=== PATIENT | male | born 1985 | race Caucasian/White ===

== ENCOUNTER 2019-05-04 02:05 | Inpatient (IN) | payer MEDICARE, OTHER ==
[2019-05-04] MEDS ORDERED: Morphine 2 MG/ML SYRINGE ONE (02:29)
[2019-05-04] MEDS ORDERED: Ondansetron PF 4 MG/2 ML Vial ONE (02:29)
[2019-05-04] MEDS ORDERED: Lorazepam 2 MG/ML VIAL ONE ×2 (04:00→07:34)
[2019-05-04] MEDS ORDERED: Fentanyl 100 MCG/2 ML VIAL ONE ×2 (05:53→09:42)
--- NOTE | 2019-05-04 08:15 | CT ---
CT OF THE ABDOMEN AND PELVIS WITH IV CONTRAST: INDICATION: Elevated lipase and concern for delirium tremens. The patient is also having upper abdominal pain. COMPARISON: None. FINDINGS: There is mild bibasilar atelectasis. There is hepatomegaly with fatty infiltration. The liver measures 24 cm in its greatest longitudinal dimension. There is mild splenomegaly measuring 13.7 cm. There is mild left gallbladder wall thickening. There is edematous change surrounding the pancreas w ith edema seen within the right aspect of the anterior pararenal space. There is edema present surro unding the hepatic flexure and proximal transverse colon which is likely reactive in nature. There i s mild wall thickening involving the proximal transverse colon and hepatic flexure which is also susp ected to be reactive in nature. There is mild free fluid in the lower pelvis. The adrenal glands and kidneys are normal appearing. The small bowel is of normal caliber. There is a healed fracture deformity involving the obturator r ings and left sacrum. There are 2 percutaneously placed pins traversing the left SI joint. No acute fracture is evident. There are healed fracture deformities involving the anterior columns of the acetabuli bilaterally. IMPRESSION: 1. Findings most consistent with acute noncomplicated pancreatitis. There is associated reactive ed raine and wall thickening involving portions of the hepatic flexure and proximal transverse colon. 2. Hepatosplenomegaly with fatty infiltration. 3. Mild gallbladder wall thickening may be reactive in nature. A component of acute cholecystitis c annot be excluded. Recommend consideration for right upper quadrant ultrasound. 4. Healed fracture deformity of the pelvis. POS:
--- NOTE | 2019-05-04 08:33 | ULT ---
RIGHT UPPER QUADRANT ULTRASOUND: INDICATION: Concern for acute cholecystitis with elevated lipase and epigastric pain. FINDINGS: There is mild edematous change seen surrounding the pancreas. The liver is enlarged with associated fatty infiltration. A small amount of ascites is seen adjacent to the right hepatic lobe. The gallbladder is distended with pericholecystic fluid and gallbladder wall thickening and a positiv e sonographic Man's sign. The common bile duct measured 3.9 mm approximately. The right kidney m easured 12.5 x 4.4 x 4.9 cm. IMPRESSION: 1. Distention of the gallbladder with gallbladder wall thickening, pericholecystic fluid, and positi ve sonographic Man's sign is suspicious for acute acalculus cholecystitis. The patient, on a rece nt CT examination, did have changes of acute pancreatitis. Correlation with the clinical exam is rec ommended. Consideration for a HIDA scan may be helpful to evaluate for cystic duct obstruction. 2. Hepatomegaly with fatty liver and a small amount of ascites. POS: BH
[2019-05-04] MEDS ORDERED: Lorazepam 2 MG/ML VIAL SLOW IVP PRN (11:14)
[2019-05-04] MEDS ORDERED: Labetalol HCl 100 MG/20 ML VIAL SLOW IVP PRN (11:14)
[2019-05-04] MEDS ORDERED: Acetaminophen 650 MG Suppository PR PRN (11:14)
[2019-05-04] MEDS ORDERED: hydrALAZINE 20 MG/ML VIAL SLOW IVP PRN (11:14)
[2019-05-04] MEDS ORDERED: Ondansetron PF 4 MG/2 ML Vial IVP PRN (11:14)
[2019-05-04] MEDS: Morphine 4 MG/ML VIAL SLOW IVP PRN ×4 (11:27→20:42)
[2019-05-04 11:36] VITALS: BMI 26.0
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
--- NOTE | 2019-05-04 12:34 | RAD ---
PA AND LATERAL CHEST: History: Chest pain FINDINGS: The heart size is normal. There is mild elevation of the right hemidiaphragm. No focal areas of conso lidation, pneumothoraces or pleural effusions are seen. There are post-operative changes and plate an d screws in the right clavicle. IMPRESSION: No radiographic evidence of acute cardiopulmonary process. POS: TPC
[2019-05-04] MEDS: Multivitamins, Adult 10 ML, Folic Acid 1 MG, Thiamine HCl 100 MG in Dextrose 5 %-0.45 %... IV SCH (14:28)
[2019-05-04] MEDS: Sodium Chloride 0.9% 1,000 ML IV SCH ×3 (14:34→20:26)
[2019-05-04] MEDS ORDERED: Iopamidol 370 76% 100 ML VIAL ONE (15:58)
[2019-05-04 18:34] LABS: Mean Corpuscular HGB CONC 33.9 g/dL (32.0-36.0); Mean Corpuscular Hemoglobin 36.3 pg (27.0-31.0); Mean Platelet Volume 6.5 fL (7.4-10.4); Platelet Count 158 thou/uL (130-400); Red Blood Cell (RBC) Count 3.04 mill/uL (4.70-6.10); White Blood Cell (WBC) Count 5.8 thou/uL (4.8-10.8)
[2019-05-04 18:35] LABS: #Lymphocytes 1.1 thou/uL (1.20-3.40); #Monocytes 0.4 thou/uL (0.11-0.59); #Neutrophils 4.2 thou/uL (1.40-6.50); %Basophils 0.8 % (0.0-1.0); %Eosinophils 0.7 % (0.0-10.0); %Lymphocytes 19.4 % (21.0-51.0); %Monocytes 6.9 % (0.0-10.0); %Neutrophils 72.2 % (42.0-75.0)
[2019-05-04 18:52] LABS: MDiff Complete? YES; Macrocytosis SLIGHT = 6-15 cells (100X) (0-5/hpf); Platelet Morphology Comment Appears Adequate; Polychromasia SLIGHT = 2-3 cells (100X) (0-2/hpf)
[2019-05-04 18:55] LABS: ALT (SGPT) 113 U/L (8-55); AST (SGOT) 204 U/L (5-34); Albumin 3.8 g/dL (3.5-5.0); Alkaline Phosphatase 166 U/L (40-150); Anion Gap 18 mmol/L (10-20); BUN (Urea Nitrogen) Less than 4 mg/dL (8.9-20.6); Bilirubin, Total 2.5 mg/dL (0.2-1.2); Calc. Creatinine Clearance 191 mL/min (70-130); Calcium 8.5 mg/dL (7.8-10.44); Carbon Dioxide 21 mmol/L (22-29); Chloride 99 mmol/L (98-107); Estimated GFR-MDRD Greater than 90; Globulin 3.9 g/dL (2.4-3.5); Glucose 134 mg/dL (70-105); Potassium 3.2 mmol/L (3.5-5.1); Protein, Total 7.7 g/dL (6.0-8.3); Sodium 135 mmol/L (136-145)
[2019-05-04] MEDS: Lorazepam 2 MG/ML VIAL SLOW IVP PRN (20:22)
[2019-05-05] MEDS: Morphine 4 MG/ML VIAL SLOW IVP PRN ×7 (00:42→21:24)
[2019-05-05] MEDS: Lorazepam 2 MG/ML VIAL SLOW IVP PRN ×5 (02:15→21:24)
[2019-05-05] MEDS: Sodium Chloride 0.9% 1,000 ML IV SCH ×3 (04:20→21:26)
[2019-05-05 05:53] LABS: #Eosinphils 0.1 thou/uL (0.0-0.7); #Monocytes 0.4 thou/uL (0.11-0.59); #Neutrophils 3.9 thou/uL (1.40-6.50); %Basophils 0.2 % (0.0-1.0); %Lymphocytes 17.7 % (21.0-51.0); %Monocytes 8.2 % (0.0-10.0); %Neutrophils 72.9 % (42.0-75.0); Hemoglobin 11.1 g/dL (14.0-18.0); Mean Corpuscular HGB CONC 34.8 g/dL (32.0-36.0); Mean Platelet Volume 6.8 fL (7.4-10.4); Platelet Count 157 thou/uL (130-400); RBC Distribution Width 12.9 % (11.5-14.5); White Blood Cell (WBC) Count 5.4 thou/uL (4.8-10.8)
[2019-05-05 06:09] LABS: Anion Gap 18 mmol/L (10-20); BUN (Urea Nitrogen) Less than 4 mg/dL (8.9-20.6); Calc. Creatinine Clearance 197 mL/min (70-130); Calcium 8.6 mg/dL (7.8-10.44); Carbon Dioxide 23 mmol/L (22-29); Chloride 98 mmol/L (98-107); Estimated GFR-MDRD Greater than 90; Glucose 113 mg/dL (70-105); Lipase 138 U/L (8-78); Potassium 3.3 mmol/L (3.5-5.1); Sodium 136 mmol/L (136-145)
[2019-05-05 06:26] LABS: HBCM Index 0.06 S/CO (0-0.79); HBSAg Index 0.33 S/CO (0-0.99); Hep A IgM AB Non-Reactive (NonReactive); Hep A IgM S/CO 0.13 S/CO (0-0.79); Hep B Surf Ag Non-Reactive S/CO (NonReactive); Hep C IgG Ab Non-Reactive (NonReactive); Hep C Index 0.14 S/CO (0-0.79); Hepatitis B Core IgM Abs Non-Reactive (NonReactive)
[2019-05-05] MEDS: Thiamine HCl 200 MG/2 ML VIAL SLOW IVP SCH (09:53)
[2019-05-05] MEDS: Multivitamins, Adult 10 ML, Folic Acid 1 MG, Thiamine HCl 100 MG in Dextrose 5 %-0.45 %... IV SCH (14:21)
--- NOTE | 2019-05-05 15:01 | NM ---
Radionucleotide hepatobiliary scan HISTORY: Abdominal pain. Gallbladder distention. FINDINGS: Early images show physiologic uptake of radiotracer within the hepatic parenchyma. Gallblad nadia first visualized at 7 minutes. Uptake is not seen within the small bowel at 60 minutes. Because patient is on morphine and contracti on of the sphincter of [place], the study is not useful to evaluate for common bile duct patency. Ejection fraction not obtained. IMPRESSION: Patent cystic duct.
--- NOTE | 2019-05-05 15:42 | PDOC.HOSPP ---
- Subjective Encounter Date: 05/05/19 Encounter Time: 14:00 Subjective: Mr. Rosario was seen today in follow-up of pancreatitis. and alcohol abuse. He says he is feeling a little better. He wants to try to eat something. He rates the abdominal pain as a 7/10. - Objective Vital Signs & Weight: Vital Signs (12 hours) Temp Pulse Resp BP BP Pulse Ox 05/05/19 12:00 99.0 F 139 H 18 147/96 H 147/96 H 93 L 05/05/19 08:00 159/112 H 94 L 05/05/19 07:56 98.9 F 131 H 18 159/112 H 94 L 05/05/19 04:27 112 H 160/103 H 05/05/19 04:00 98.8 F 103 H 18 160/103 H 94 L Weight Weight 197 lb 3.2 oz Result Diagrams: 05/05/19 05:28 05/05/19 05:28 ROS - Medication Medications: Active Medications Generic Name Dose Route Start Last Admin Trade Name Freq PRN Reason Stop Dose Admin Hydralazine HCl 10 mg 05/04/19 11:14 05/05/19 04:27 Apresoline SLOW IVP 10 mg Q4H PRN Administration SBP > 180 and HR < 70 Multivitamins 10 ml/ Folic 1,011.2 mls @ 250 mls/hr 05/04/19 11:30 05/05/19 14:21 Acid 1 mg/ Thiamine HCl 100 mg IV 1,011.2 mls / Dextrose/Sodium Chloride Q24HR ROSA Administration Sodium Chloride 1,000 mls @ 150 mls/hr 05/04/19 11:15 05/05/19 13:18 Normal Saline 0.9% IV 1,000 mls .Q6H40M ROSA Administration Lorazepam 2 mg 05/05/19 08:04 05/05/19 12:00 Ativan SLOW IVP 2 mg Q4H PRN Administration Anxiety/Agitation Morphine Sulfate 4 mg 05/04/19 11:14 05/05/19 14:21 Morphine SLOW IVP 4 mg Q3H PRN Administration Pain Ondansetron HCl 4 mg 05/04/19 11:14 05/05/19 08:05 Zofran IVP 4 mg Q6H PRN Administration Nausea/Vomiting Sodium Chloride 10 ml 05/05/19 09:00 05/05/19 09:54 Flush - Normal Saline IVF 10 ml Q12HR ROSA Administration Thiamine HCl 100 mg 05/05/19 09:00 05/05/19 09:53 Thiamine Hcl SLOW IVP 100 mg Q24HR ROSA Administration - Exam Eye: PERRL, anicteric sclera ENT: normocephalic atraumatic, no oropharyngeal lesions, moist mucosa Heart: RRR, no murmur, no gallops, no rubs, normal peripheral pulses Respiratory: CTAB, no wheezes, no rales, no ronchi, normal chest expansion, no tachypnea Gastrointestinal: soft, normal bowel sounds, no palpable masses, no hepatomegaly , tender to palpation (+ diffuse and epigastric tenderness) Extremities: no cyanosis, no clubbing, no edema Hosp A/P (1) Acute pancreatitis Code(s): K85.90 - ACUTE PANCREATITIS WITHOUT NECROSIS OR INFECTION, UNSP Status: Acute (2) Alcohol withdrawal Code(s): F10.239 - ALCOHOL DEPENDENCE WITH WITHDRAWAL, UNSPECIFIED Status: Acute (3) Alcohol abuse Code(s): F10.10 - ALCOHOL ABUSE, UNCOMPLICATED Status: Chronic - Plan * Acute pancreatitis- will continue vigorous IV hydration * Will advance diet to clear liquids * HIDA scan results noted- he had visualization of the gallbladder after 7 minutes * Alcohol abuse with withdrawal- he is still quite tachycardic- will transfer him to Telemetry, and place him on the ASE protocol * HTN- blood pressure is elevated- and this is suspected to be due to withdrawal - will add Clonidine
[2019-05-05] MEDS ORDERED: cloNIDine 0.1 MG TAB PO PRN (15:44)
[2019-05-06] MEDS: Lorazepam 2 MG/ML VIAL SLOW IVP PRN ×3 (00:54→08:14)
[2019-05-06] MEDS: Morphine 4 MG/ML VIAL SLOW IVP PRN ×7 (00:54→21:43)
[2019-05-06] MEDS ORDERED: Sodium Chloride 0.9% 1,000 ML IV SCH (02:30)
--- NOTE | 2019-05-06 02:36 | PDOC.EVN ---
Event Note - Event Note Event Note: Patient is tolerating clears and asking for food. Will go ahead and advance diet as tolerated. His IV seems to be infiltrating with the 150 cc / hour NS per nursing; now that he is tolerating clears, will turn fluids down just a little and see if that resolves the problem. Continue ASE protocol for withdrawal.
[2019-05-06] MEDS: Sodium Chloride 0.9% 1,000 ML IV SCH ×3 (04:21→21:44)
[2019-05-06 05:45] LABS: #Eosinphils 0.1 thou/uL (0.0-0.7); #Monocytes 0.5 thou/uL (0.11-0.59); #Neutrophils 4.2 thou/uL (1.40-6.50); %Basophils 0.7 % (0.0-1.0); %Eosinophils 1.6 % (0.0-10.0); %Lymphocytes 16.7 % (21.0-51.0); %Monocytes 8.9 % (0.0-10.0); %Neutrophils 72.1 % (42.0-75.0); Hemoglobin 11.5 g/dL (14.0-18.0); Mean Corpuscular HGB CONC 34.4 g/dL (32.0-36.0); Mean Corpuscular Hemoglobin 36.7 pg (27.0-31.0); Mean Platelet Volume 6.9 fL (7.4-10.4); Platelet Count 155 thou/uL (130-400); RBC Distribution Width 12.9 % (11.5-14.5); Red Blood Cell (RBC) Count 3.14 mill/uL (4.70-6.10); White Blood Cell (WBC) Count 5.8 thou/uL (4.8-10.8)
[2019-05-06 06:07] LABS: Anion Gap 19 mmol/L (10-20); BUN (Urea Nitrogen) Less than 4 mg/dL (8.9-20.6); Calc. Creatinine Clearance 206 mL/min (70-130); Calcium 9.2 mg/dL (7.8-10.44); Carbon Dioxide 21 mmol/L (22-29); Chloride 99 mmol/L (98-107); Estimated GFR-MDRD Greater than 90; Glucose 112 mg/dL (70-105); Lipase 79 U/L (8-78); Potassium 3.3 mmol/L (3.5-5.1); Sodium 136 mmol/L (136-145)
[2019-05-06] MEDS ORDERED: Potassium Chloride 20 MEQ TAB PO SCH (07:15)
[2019-05-06] MEDS: Thiamine HCl 200 MG/2 ML VIAL SLOW IVP SCH (08:41)
[2019-05-06] MEDS ORDERED: Magnesium 2 GM/50 ML 2 GM in Premix Bag 1 BAG IVPB SCH (09:15)
[2019-05-06] MEDS: chlordiazePOXIDE HCl 25 MG CAP PO SCH ×3 (10:02→20:28)
[2019-05-06] MEDS ORDERED: Lorazepam 2 MG/ML VIAL SLOW IVP PRN (11:31)
--- NOTE | 2019-05-06 11:34 | PDOC.HOSPP ---
- Subjective Encounter Date: 05/06/19 Encounter Time: 11:33 Subjective: Mr. Rosario was seen today in follow-up of acute pancreatitis, and alcohol withdrawal. He looks clinically improved today, not as agitated, and nervous. He feels less " shaky" but says his chronic pain is not well controlled. - Objective Vital Signs & Weight: Vital Signs (12 hours) Temp Pulse Resp BP BP BP Pulse Ox 05/06/19 08:28 153/93 H 05/06/19 08:09 99.2 F 145 H 16 173/111 H 96 05/06/19 08:00 96 05/06/19 04:00 98.9 F 135 H 18 165/114 H 98 05/06/19 02:40 164/109 H 05/05/19 23:46 99.0 F 129 H 20 164/109 H 98 Weight Weight 197 lb 3.2 oz I&O: 05/05/19 05/06/19 05/07/19 06:59 06:59 06:59 Intake Total 120 Balance 120 Result Diagrams: 05/06/19 05:21 05/06/19 05:21 ROS - Medication Medications: Active Medications Generic Name Dose Route Start Last Admin Trade Name Freq PRN Reason Stop Dose Admin Chlordiazepoxide HCl 25 mg 05/06/19 09:00 05/06/19 10:02 Librium PO 25 mg TID ROSA Administration Hydralazine HCl 10 mg 05/04/19 11:14 05/05/19 04:27 Apresoline SLOW IVP 10 mg Q4H PRN Administration SBP > 180 and HR < 70 Multivitamins 10 ml/ Folic 1,011.2 mls @ 250 mls/hr 05/04/19 11:30 05/05/19 14:21 Acid 1 mg/ Thiamine HCl 100 mg IV 05/06/19 23:59 1,011.2 mls / Dextrose/Sodium Chloride Q24HR ROSA Administration Sodium Chloride 1,000 mls @ 100 mls/hr 05/06/19 03:00 05/06/19 04:21 Normal Saline 0.9% IV 1,000 mls .Q10H ROSA Administration Magnesium Sulfate 2 gm/ Device 50 mls @ 100 mls/hr 05/06/19 09:15 05/06/19 10 :02 IVPB 05/06/19 13:00 50 mls NOW ROSA Administration Morphine Sulfate 4 mg 05/04/19 11:14 05/06/19 08:14 Morphine SLOW IVP 4 mg Q3H PRN Administration Pain Ondansetron HCl 4 mg 05/04/19 11:14 05/05/19 08:05 Zofran IVP 4 mg Q6H PRN Administration Nausea/Vomiting Potassium Chloride 40 meq 05/06/19 07:15 05/06/19 08:13 K-Dur PO 05/06/19 12:00 40 meq NOW ROSA Administration Sodium Chloride 10 ml 05/05/19 09:00 05/06/19 08:14 Flush - Normal Saline IVF Not Given Q12HR ROSA Thiamine HCl 100 mg 05/05/19 09:00 05/06/19 08:41 Thiamine Hcl SLOW IVP 100 mg Q24HR ROSA Administration - Exam Eye: PERRL, scleral icterus Heart: RRR (Tachycardic), no murmur, no gallops, no rubs, normal peripheral pulses Respiratory: CTAB, no wheezes, no rales, no ronchi, normal chest expansion Gastrointestinal: soft, non-distended, normal bowel sounds, no palpable masses ( But the liver was percussed to 1-1/2 cm below the right costal margin, non- tender negative fluid wave), tender to palpation (+ tenderness in the mid lower quadrant) Extremities: no cyanosis, no clubbing, no edema Neurological: CN's grossly intact, no focal deficits Hosp A/P (1) Acute pancreatitis Code(s): K85.90 - ACUTE PANCREATITIS WITHOUT NECROSIS OR INFECTION, UNSP Status: Acute (2) Alcohol withdrawal Code(s): F10.239 - ALCOHOL DEPENDENCE WITH WITHDRAWAL, UNSPECIFIED Status: Acute (3) Alcohol abuse Code(s): F10.10 - ALCOHOL ABUSE, UNCOMPLICATED Status: Chronic - Plan * Acute pancreatitis- improving- will advance his diet- continue IV hydration * Alcohol abuse with withdrawal- still quite tachycardic- will add Librium to his regimen * Will repeat his LFT's * Hypokalemia and Hypomagnesemia- will replace * HTN- blood pressure is elevated- and this is suspected to be due to withdrawal - will add Clonidine * Will continue to monitor in the hospital until his vital signs stabilize
[2019-05-06] MEDS: Multivitamins, Adult 10 ML, Folic Acid 1 MG, Thiamine HCl 100 MG in Dextrose 5 %-0.45 %... IV SCH (11:47)
[2019-05-06 12:17] LABS: ALT (SGPT) 85 U/L (8-55); AST (SGOT) 142 U/L (5-34); Albumin 3.9 g/dL (3.5-5.0); Alkaline Phosphatase 156 U/L (40-150); Bilirubin, Direct 2.9 mg/dL (0.1-0.3); Bilirubin, Total 4.1 mg/dL (0.2-1.2)
[2019-05-06] MEDS ORDERED: Acetaminophen 325 MG TAB PO PRN (16:28)
[2019-05-06] MEDS: Lorazepam 1 MG TAB PO PRN (16:55)
[2019-05-07] MEDS: Lorazepam 1 MG TAB PO PRN ×3 (00:02→10:28)
[2019-05-07] MEDS: Morphine 4 MG/ML VIAL SLOW IVP PRN ×3 (00:59→08:59)
[2019-05-07 06:25] LABS: Anion Gap 15 mmol/L (10-20); BUN (Urea Nitrogen) Less than 4 mg/dL (8.9-20.6); Calc. Creatinine Clearance 223 mL/min (70-130); Calcium 9.3 mg/dL (7.8-10.44); Carbon Dioxide 23 mmol/L (22-29); Chloride 101 mmol/L (98-107); Estimated GFR-MDRD Greater than 90; Glucose 126 mg/dL (70-105); Lipase 82 U/L (8-78); Potassium 3.1 mmol/L (3.5-5.1); Sodium 136 mmol/L (136-145)
[2019-05-07 06:32] LABS: Band 4 % (5-11); Hemoglobin 11.2 g/dL (14.0-18.0); Lymphocytes 21 % (21-51); MDiff Complete? YES; Mean Corpuscular HGB CONC 34.4 g/dL (32.0-36.0); Mean Platelet Volume 6.8 fL (7.4-10.4); Monocytes 14 % (0-10); Neutrophil 61 % (42-75); Platelet Count 186 thou/uL (130-400); RBC Distribution Width 13.2 % (11.5-14.5); Red Blood Cell (RBC) Count 3.02 mill/uL (4.70-6.10); White Blood Cell (WBC) Count 5.4 thou/uL (4.8-10.8)
[2019-05-07 08:59] VITALS: BP 133/85; TEMP 98.3
[2019-05-07] MEDS: Thiamine HCl 200 MG/2 ML VIAL SLOW IVP SCH (08:59)
[2019-05-07] MEDS: chlordiazePOXIDE HCl 25 MG CAP PO SCH (08:59)
[2019-05-07] MEDS: Sodium Chloride 0.9% 1,000 ML IV SCH (09:00)
[2019-05-07] MEDS ORDERED: Potassium Chloride 20 MEQ TAB PO SCH (10:00)
--- NOTE | 2019-05-08 01:25 | DIS ---
DATE OF ADMISSION: 05/04/2019 DATE OF DISCHARGE: 05/07/2019 REASON FOR HOSPITALIZATION: Acute alcohol-induced pancreatitis. SIGNIFICANT FINDINGS: The patient had CT scan of the abdomen, please see full report for details, radiographic imaging to suggest acute inflammation of the pancreas that is non-complicated. There is no reactive edema. There is no other acute intraabdominal pathology. TREATMENTS RENDERED: The patient was placed on IV fluid resuscitation and a period of n.p.o. state. The patient was slowly advanced on diet, when tolerating regular diet and oral pain medications, he was recommended safe for discharge. The patient was placed on oral medications to avoid alcohol withdrawal. CONDITION ON DISCHARGE: Stable. SPECIFIC INSTRUCTIONS FOR THE PATIENT/FAMILY: 1. The patient is recommended to completely abstain from alcohol use. 2. The patient is recommended to complete alcohol withdrawal taper with Librium medication, the patient was given a handwritten prescription with directions on taper. The patient was explicitly informed in the presence of his mother and significant other that if he is to go back to drinking alcohol, his symptoms will return and he should stop Librium immediately. 3. The patient is recommended to follow up with primary care physician in the next 5 to 7 days. 4. The patient is recommended to follow up with highway painter helper. 5. The patient is recommended to complete a full course of oral antibiotics with clindamycin for methicillin-sensitive infection, this is likely a skin contaminant. However, a full course of antibiotics recommended. HOME MEDICATIONS: 1. Gabapentin 500 to 900 mg p.o. daily p.r.n. neuropathy. 2. Famotidine 10 mg p.o. daily. 3. Tizanidine 4 mg p.o. t.i.d. p.r.n. muscle spasms. 4. Metformin 500 mg one tablet p.o. q.a.m. NEW MEDICATIONS: 1. Librium 10 mg p.o. with extended taper as follows; Librium 3 tablets p.o. t.i.d. for 3 days, then 2 tablets p.o. t.i.d. for 3 days, then 1 tablet p.o. t.i.d. for 3 days, then 1 tablet p.o. b.i.d. for 3 days, then 1 tablet p.o. daily for 3 days , and then stop. 2. Ativan 0.5 mg one tablet p.o. t.i.d. p.r.n. withdrawal symptoms. 3. Clindamycin 150 mg p.o. q.6 hours for 7 days. HISTORY OF PRESENT ILLNESS: Mr. Rosario is a 34-year-old gentleman who presented to [facility] on 05/04/2019, with abdominal pain, nausea, and vomiting. He was found to have alcohol-induced pancreatitis as confirmed on CT scan of the abdomen-please see full report for details. The patient initially placed on strict n.p.o. status, IV fluid resuscitation, and with time, he clinically improved, nausea and vomiting controlled. The patient was slowly advanced on diet. The patient is placed on alcohol-withdrawal prophylaxis and the patient did not have any acute complications of alcohol withdrawal. The patient had ultrasound of the abdomen which did have nonspecific changes of the gallbladder. A HIDA scan was performed. HIDA scan-please see full report for details. Impression; there is a patent cystic duct with a functioning gallbladder seen on HIDA scan. The patient is clinically improving on maximal medical therapy and he was tolerating diet and ambulating without difficulties. The patient is recommended safe for discharge on 2018. The patient is recommended to follow up with primary care physician in the next 5 to 7 days, or return to acute care hospital immediately. The patient is recommended to take all medications as outlined, and was strictly informed in the presence of his mother and significant other at bedside that if he is to resume drinking, he is to stop the Librium and Ativan immediately and give them to appropriate services such as returning them to the hospital or the police station. The patient is recommended that if signs or symptoms return, worsen, or any other new symptoms occur, he is to return to the emergency department immediately for re evaluation. Greater than 39 minutes spent coordinating care and discharge process. Job ID: [id number] [facility]TD[facility]
--- NOTE | 2019-05-09 22:39 | EKG ---
Test Reason : Blood Pressure : / mmHG Vent. Rate : 126 BPM Atrial Rate : 126 BPM P-R Int : 148 ms QRS Dur : 090 ms QT Int : 318 ms P-R-T Axes : 041 052 -22 degrees QTc Int : 460 ms Sinus tachycardia Nonspecific ST and T wave abnormality Abnormal ECG No previous ECGs available Confirmed by Joseph BOND ([id number]) on 05/09/2019 10:39:08 PM Referred By: CLAUS Confirmed By:Joseph BOND
== END 2019-05-07 13:27 | disposition home or self-care (01) | DRG 439 ==
LOC: ERS 02:05 → T4-A 10:12 → 2NO 05-05 18:05
PROVIDERS: ADMIT Family Medicine; ATTEND Family Medicine
DX: K85.20 Alcohol induced acute pancreatitis without necrosis or infection (principal); F10.239 Alcohol dependence with withdrawal, unspecified; F10.288 Alcohol dependence with other alcohol-induced disorder; G89.4 Chronic pain syndrome; D64.9 Anemia, unspecified; I10 Essential (primary) hypertension; E87.6 Hypokalemia; E83.42 Hypomagnesemia; Z88.2 Allergy status to sulfonamides; Z88.1 Allergy status to other antibiotic agents; Z79.899 Other long term (current) drug therapy; Z79.84 Long term (current) use of oral hypoglycemic drugs; E11.9 Type 2 diabetes mellitus without complications; F17.220 Nicotine dependence, chewing tobacco, uncomplicated
CPT/HCPCS: 36415; 71046; 74177; 76705; 78226; 80048; 80053; 80074; 80076; 83690; 83735; 85025; 87040; 87077; 87149; 87186; 93005; 93010; 96361; 96374; 96375; 96376; A9537; J0360; J2060; J2270; J2405; J3010; J3411; J3475; J7042; Q9967